=== PATIENT | male | born 1965 | race Caucasian/White ===

== ENCOUNTER → 2019-01-01 | Outpatient (CLI) | payer OTHER ==
--- NOTE | 2019-01-01 10:20 | CT ---
EXAMINATION TYPE: CT heart w calcium score DATE OF EXAM: 01/01/2019 COMPARISON: None HISTORY: Screening for cardiovascular disorder. 213.9 CT DLP: 155.90 mGycm Automated exposure control for dose reduction was used. CT CALCIUM SCORING Coronary calcium is a marker for plaque (fatty deposits) in a blood vessel or atherosclerosis (harden ing of the arteries). The presence and amount of calcium detected in a coronary artery by the CT sca n, indicates the presence and amount of atherosclerotic plaque. These calcium deposits appear years before the development of heart disease symptoms such as chest pain and shortness of breath. A calcium score is computed for each of the coronary arteries based upon the volume and density of th e calcium deposits. This can be referred to as your calcified plaque burden. It does not correspond directly to the percentage of narrowing in the artery but does correlate with the severity of the un derlying coronary atherosclerosis. PROCEDURE TECHNIQUE - Prospective Gating was used. Slice thickness: 3mm. Density threshold (HU): 130, Pixel threshold: 3, Algorithm: discrete. RESULTS Region: LM Calcium Score ([place]): 40 Volume (mm3): 31 Mass (g): 14.34 Region: RCA Calcium Score ([place]): 41 Volume (mm3): 31 Mass (g): 10.2 Region: LAD Calcium Score ([place]): 80 Volume (mm3): 61 Mass (g): 24.11 Region: CX Calcium Score ([place]): 137 Volume (mm3): 103 Mass (g): 43.43 Total: Calcium Score ([place]ston): 298 TOTAL CALCIUM SCORE: 298 IMPRESSION: Calcium Score: 298 Implication: Definite, at least moderate atherosclerotic plaque. There is mild coronary artery disea se risk highly likely, significant narrowings are possible. Risk of Coronary Artery Disease: Significant narrowings of coronary vessels are possible. This patien t is above the 95th percentile for risks of coronary artery disease in age and sex match comparison. Recommendation: 1. Additional workup for coronary artery disease.
== END | disposition home or self-care (01) ==
LOC: RADCTMAIN 08:46
PROVIDERS: ATTEND Family Medicine
DX: I25.10 Atherosclerotic heart disease of native coronary artery without angina pectoris (principal); I10 Essential (primary) hypertension; E11.65 Type 2 diabetes mellitus with hyperglycemia; E78.2 Mixed hyperlipidemia
CPT/HCPCS: 75571

== ENCOUNTER 2019-02-13 09:25 | Day surgery (SDC) | payer OTHER ==
[2019-02-07 15:49] VITALS: BMI 42.7
[~2019-02-13 09:25] MED LIST: ALPRAZolam 0.25 MG TAB PO PRN; ALPRAZolam 0.5 MG TAB PO PRN; ASPIRIN 325 MG TAB PO STA; ATORVASTATIN 80 MG TAB PO STA; NITROGLYCERIN SL TABS 0.4 MG TAB SUBLINGUAL PRN; SODIUM CHLORIDE 0.9% 1,000 ML in EMPTY BAG 1 BAG IV ONE
[2019-02-13 10:00] LABS: Glucose,Whole Blood 149 mg/dL (75-99)
[2019-02-13] MEDS ORDERED: LIDOCAINE 1% INJ 10MG/ML (20 ML MDV) ONE (10:26)
[2019-02-13] MEDS ORDERED: VERAPAMIL 2.5 MG/ML 2 ML AMP ONE (10:26)
[2019-02-13] MEDS ORDERED: fentaNYL (PF) 50 MCG/ML 2 ML AMP ONE (10:26)
[2019-02-13] MEDS ORDERED: fentaNYL (PF) 50 MCG/ML 2 ML AMP IV ONE (10:30)
[2019-02-13] MEDS: MIDAZOLAM 2 MG/2 ML VIAL IV ONE ×2 (10:31→11:39)
[2019-02-13] MEDS ORDERED: LIDOCAINE 1% INJ 10MG/ML (20 ML MDV) SQ ONE (10:35)
[2019-02-13] MEDS: VERAPAMIL SYRINGE (5 MG/10 ML) INTRAARTER ONE ×2 (10:41→10:46)
[2019-02-13] MEDS ORDERED: HEPARIN SODIUM 1,000 UN/ML (10ML VL) ONE (10:43)
[2019-02-13] MEDS ORDERED: HEPARIN SODIUM 1,000 UN/ML (10ML VL) IV ONE (10:45)
--- NOTE | 2019-02-13 11:22 | P.CARDCATH ---
Date of Procedure: 02/13/19 Preoperative Diagnosis: Chest pain and a high calcium score on the computed tomography scan. Strong family history of ischemic heart disease Postoperative Diagnosis: Heavily calcified coronary system involving both the left and right coronary arteries. About 90% stenosis of the mid RCA. Procedure(s) Performed: Left heart catheterization without left ventriculography Description of Procedure: HISTORY: This is a 53-year-old gentleman who was recently seen for evaluation of chest pains. Patient also had a height calcium score on the computed tomography scan of the heart. Patient is advised to have a stress test or cardiac catheterization for definitive diagnosis. Patient preferred to have cardiac catheterization for definitive diagnosis CONSENT:I have discussed the risks, benefits and alternative therapies for the above-mentioned procedure and for both sedation/analgesia as well as necessary blood product administration, if indicated, as they pertain to this patient. The patient has indicated understanding and acceptance of the risks and procedures discussed. PROCEDURE: Patient was brought to the lab in a fasting state. Patient was given some IV sedation. The right wrist is infiltrated with lidocaine and right femoral radial artery was entered using Seldinger technique. A 6-[place] catheter was advanced over the guidewire. The catheter went in partially but could not could not be fully advanced because of difficulty. The catheter was left partially in and selective coronary arteriography was performed without any difficulty.. Patient tolerated the procedure well. TR band was applied for hemostasis. Patient was found to have a critical lesion in the RCA and patient is going to have atherectomy and stent placement of the RCA by Dr. Gray. No immediate complications were noted . Patient was given 4000 of heparin Conscious Sedation: Versed 1.5mg Fentanyl 50 g Duration 27 minutes HEMODYNAMICS: The aortic pressure is about 150/75. Left ventricular end- diastolic pressure is about 10. There was no gradient across the aortic valve. SELECTIVE CORONARY ARTERIOGRAPHY: LEFT MAIN: Long with a mild disease distally with about 30-40% luminal narrowing. The left main is heavily calcified THE LEFT ANTERIOR DESCENDING CORONARY ARTERY: This is a moderate caliber vessel with heavy calcification in the proximal and mid segments. There appears to be a 30-40% stenosis in the proximal segments without any critical lesions THE LEFT CIRCUMFLEX AND IS CORONARY ARTERY: This is a nondominant vessel and heavily calcified. No significant obstructive disease noted THE RIGHT CORONARY ARTERY: This is a dominant vessel and heavily calcified with a critical lesion in the midportion LEFT VENTRICULOGRAPHY: Not performed FINAL IMPRESSION: Critical lesion involving the heavily calcified right coronary artery. Heavily calcified left coronary system with a 30% distal left main disease and also about 30% lesion of the LAD. No critical lesion noted in the left coronary system PLAN: Atherectomy and stent placement of the RCA to be done by Dr. Hylton. PROGNOSIS: Fair
[2019-02-13] MEDS ORDERED: BIVALIRUDIN BOLUS 250 MG/50 ML IV ONE (11:36)
[2019-02-13] MEDS ORDERED: BIVALIRUDIN 250 MG in SODIUM CHLORIDE 0.9% 50 ML IV ONE (11:37)
[2019-02-13] MEDS ORDERED: MIDAZOLAM 2 MG/2 ML VIAL IV ONE (11:47)
[2019-02-13] MEDS ORDERED: TICAGRELOR 90 MG TAB ONE (12:01)
[2019-02-13] MEDS ORDERED: NITROGLYCERIN 1000MCG/10ML SYRINGE INTRACORON ONE (12:03)
[2019-02-13] MEDS ORDERED: TICAGRELOR 90 MG TAB PO ONE (12:03)
[2019-02-13] MEDS ORDERED: IOPAMIDOL-370 100ML BTL INJ ONE ×2 (12:04→12:18)
[2019-02-13] MEDS ORDERED: ERYTHROMYCIN 2% TOPICAL SOLN 60 ML BTL TOPICAL PRN (12:22)
[2019-02-13] MEDS ORDERED: ALPRAZolam 0.25 MG TAB PO PRN (12:22)
[2019-02-13] MEDS ORDERED: HYDROCORTISONE 1% CREAM 30 GM TUBE TOPICAL PRN (12:22)
[2019-02-13] MEDS ORDERED: NITROGLYCERIN SL TABS 0.4 MG TAB SUBLINGUAL PRN (12:24)
[2019-02-13] MEDS ORDERED: MAG HYDROX/AL HYDROX/SIMETH 30 ML CUP PO PRN (12:24)
[2019-02-13] MEDS ORDERED: RX INFO: IV CONTRAST WAS GIVEN 1 EACH MISC MISCELLANE PRN (12:24)
[2019-02-13] MEDS ORDERED: ZOLPIDEM 5 MG TAB PO PRN (12:24)
[2019-02-13] MEDS ORDERED: ATROPINE SULFATE 0.1 MG/ML 10ML SYRINGE IV PRN (12:24)
[2019-02-13] MEDS ORDERED: SODIUM CHLORIDE 0.9% 1,000 ML IV SCH (12:30)
[2019-02-13 15:02] VITALS: RESP 18
[2019-02-13] MEDS: ACETAMINOPHEN TAB 325 MG TAB PO PRN ×2 (15:34→20:47)
--- NOTE | 2019-02-13 18:20 | PTCA ---
PERCUTANEOUSTRANS CORORONARY ANGIOGRAPHY DATE OF SERVICE: February 13, 2019 PERFORMING PHYSICIAN: Bryson Hylton MD, railroad passenger agent. PROCEDURE PERFORMED: 1. Atherectomy of the right coronary artery using the orbital atherectomy device from lensgen. 2. Successful stenting of the mid right coronary artery using 4.0 x 28 mm Xience drug- eluting stent with an excellent angiographic results and reduction of stenosis from 90% to 10%. INDICATIONS: This is a 53-year-old gentleman with diabetes, hypertension, and dyslipidemia, who sees Dr. Haynes as an outpatient who recently was experiencing chest discomfort. He underwent heart catheterization by Dr. Haynes earlier today and that revealed critical disease involving the right coronary artery with extremely calcified plaque. Because of that PCI of the RCA, was advised. APPROACH: Right common femoral artery. COMPLICATION: None. LEVEL OF SEDATION: Moderate with sedation length of 52 minutes. PROCEDURE DESCRIPTION: After obtaining an informed consent, the patient was brought to the cardiac general laborer. The right common femoral artery was cannulated using micropuncture technique, the micropuncture wire passed easily. Then I placed a 6-[place] sheath in the right common femoral artery. At that point, anticoagulation was initiated using Angiomax. Subsequently I did engage the RCA using JR4 guide. I did wire the right coronary artery using a whisper wire. After that, I did exchange my Whisper wire into ViperWire using Super Cross catheter. After that, I did atherectomy of the mid right coronary artery using the orbital atherectomy device with CSI wire. I did atherectomy under low speed for 30 seconds. After that, I did balloon angioplasty initially using 3.0 mm balloon, then 375 mm balloon. After that, I was able to advance 4.0 x 28 mm Xience drug-eluting stent where stent was positioned under fluoroscopy guidance and deployed under its nominal pressure. The following angiogram showed excellent angiographic results and the procedure was completed without any complication. POSTPROCEDURE MANAGEMENT: 1. Dual anti-platelet therapy. 2. Risk factors modifications. 3. Aggressive cholesterol control. 4. Follow up with the patient. MMODL / IJN: [id number] /
[2019-02-13] MEDS: CARVEDILOL 12.5 MG TAB PO SCH (18:38)
[2019-02-13] MEDS: FUROSEMIDE 40 MG TAB PO SCH (18:38)
[2019-02-13] MEDS: GLIMEPIRIDE 4 MG TAB PO SCH (18:39)
--- NOTE | 2019-02-13 18:46 | LTR ---
February 13, 2019 To: Dr. Mays Re: Dwayne Coreas (63) Dear Dr. Mays, MrLiz Coreas underwent a heart catheterization earlier today by Dr. Haynes and was found to have severe disease involving the mid right coronary artery. I performed successful stenting of the right coronary artery with good angiographic results and without any complication. Thank you for allowing us to participate in his care. Please do not hesitate to call if you have any question or concern. Sincerely, Bryson Hylton M.D. YESENIA / MERY: [id number] /
[2019-02-13] MEDS: LISINOPRIL 20 MG TAB PO SCH (20:48)
[2019-02-13] MEDS: TICAGRELOR 90 MG TAB PO SCH (20:49)
[2019-02-13] MEDS: POTASSIUM CHLORIDE ER 10 MEQ TAB.ER.PRT PO SCH (20:49)
[2019-02-13] MEDS ORDERED: LATANOPROST 0.005% OPHTH DROPS 2.5 ML BTL BOTH EYES SCH (21:00)
[2019-02-13] MEDS ORDERED: MONTELUKAST 10 MG TAB PO SCH (21:00)
[2019-02-14 05:16] VITALS: PULSE 72
[2019-02-14] MEDS: GLIMEPIRIDE 4 MG TAB PO SCH (06:53)
[2019-02-14] MEDS: CARVEDILOL 12.5 MG TAB PO SCH (06:53)
[2019-02-14] MEDS: FUROSEMIDE 40 MG TAB PO SCH (07:51)
[2019-02-14 07:53] LABS: Basophils % (A) 0 %; Eosinophils # (A) 0.3 k/uL (0-0.7); Eosinophils % (A) 4 %; HCT 41.1 % (39.0-53.0); HGB 13.1 gm/dL (13.0-17.5); Lymphocytes # (A) 1.9 k/uL (1.0-4.8); Lymphocytes % (A) 20 %; MCH 27.1 pg (25.0-35.0); MCV 84.8 fL (80.0-100.0); Mean Platelet Volume 7.7; Monocytes # (A) 0.6 k/uL (0-1.0); Monocytes % (A) 6 %; Neutrophils # (A) 6.3 k/uL (1.3-7.7); Neutrophils % (A) 68 %; Platelet Count 290 k/uL (150-450); RBC 4.85 m/uL (4.30-5.90); RDW 14.5 % (11.5-15.5); WBC 9.3 k/uL (3.8-10.6)
[2019-02-14] MEDS: LISINOPRIL 20 MG TAB PO SCH (07:55)
[2019-02-14] MEDS: POTASSIUM CHLORIDE ER 10 MEQ TAB.ER.PRT PO SCH (07:55)
[2019-02-14] MEDS: TICAGRELOR 90 MG TAB PO SCH (07:55)
[2019-02-14 08:00] VITALS: BP 143/75; TEMP 98.8
[2019-02-14 08:00] LABS: Anion Gap 9 mmol/L; Blood Urea Nitrogen 10 mg/dL (9-20); Calcium 9.5 mg/dL (8.4-10.2); Carbon Dioxide 26 mmol/L (22-30); Chloride 107 mmol/L (98-107); Glucose 88 mg/dL (74-99); Potassium 3.9 mmol/L (3.5-5.1); Sodium 142 mmol/L (137-145)
[2019-02-14] MEDS ORDERED: CHOLECALCIFEROL 1,000 UNIT TAB PO SCH (09:00)
[2019-02-14] MEDS ORDERED: PIOGLITAZONE 45 MG TAB PO SCH (09:00)
[2019-02-14] MEDS ORDERED: PARoxetine 20 MG TAB PO SCH (09:00)
[2019-02-14] MEDS ORDERED: ASPIRIN 81 MG PO SCH (09:00)
[2019-02-14] MEDS ORDERED: LORATADINE 10 MG TAB PO SCH (09:00)
--- NOTE | 2019-02-14 10:19 | P.DS ---
Providers Date of admission: 02/13/2019 Attending physician: Abby Haynes Consults: 02/13/19 12:24 Consult Physician Routine Consulting Provider: [facility] Consult Reason/Comments: Post Interventional patient Do you want consulting provider notified?: Already Contacted Primary care physician: Chalino Mays - Discharge Diagnosis(es) (1) CAD (coronary artery disease) Current Visit: Yes Status: Acute (2) High coronary artery calcium score Current Visit: Yes Status: Acute (3) Status post coronary artery stent placement Current Visit: Yes Status: Acute Hospital Course: This is a 53-year-old gentleman who was brought in for cardiac catheterization because of chest pains and a high calcium score on the computed tomography scan. Patient was found to have significant calcification of the coronary system with a critical lesion involving the mid RCA. Patient had atherectomy and stent placement of the RCA by Dr. Hylton. Patient reminded stable overnight. Denied any chest pain, shortness of breath or dizziness. His back is slightly sore. His puncture site in the right wrist seems to be healing well without any hematoma or significant ecchymosis. Radial pulses preserved. The puncture site in the right groin seems to be soft without any hematoma. Mildly ecchymosis noted. Lungs are clear. Heart is regular. No JVD. No peripheral edema. His lab work showed stable renal function and CBC. Patient is being discharged home in stable condition. Plan - Discharge Summary Discharge Rx Participant: Yes New Discharge Prescriptions: New Ticagrelor [Brilinta] 90 mg PO BID #90 tab Atorvastatin [Lipitor] 80 mg PO HS #90 tab Nitroglycerin Sl Tabs [Nitrostat] 0.4 mg SUBLINGUAL Q5M PRN #25 tab PRN Reason: Chest Pain Continue Pioglitazone [Actos] 45 mg PO DAILY Glimepiride [Amaryl] 4 mg PO BID Furosemide [Lasix] 40 mg PO BID Loratadine [Claritin] 10 mg PO DAILY Cholecalciferol [Vitamin D3] 2,000 unit PO DAILY ALPRAZolam [Xanax] 0.25 mg PO Q8HR PRN PRN Reason: Anxiety metFORMIN HCL 1,000 mg PO BID Lisinopril 40 mg PO BID Erythromycin Topical [Erythromycin 2% Topical Soln] 1 applic TOPICAL DAILY PRN PRN Reason: Skin Irritation Multivitamins, Thera [Multivitamin (formulary)] 1 tab PO DAILY Aspirin [Adult Low Dose Aspirin EC] 81 mg PO DAILY Carvedilol [Coreg*] 12.5 mg PO BID Potassium Chloride [K-Tab ER] 10 meq PO BID Hydrocortisone Cream [Hydrocortisone 1% Cream] 1 applic TOPICAL DAILY PRN PRN Reason: Skin Irritation Latanoprost/Pf [Latanoprost 0.005% Eye Drop] 1 drop BOTH EYES HS PARoxetine HCL [Paxil] 40 mg PO DAILY Montelukast [Singulair] 10 mg PO HS Discontinued Simvastatin [Zocor] 20 mg PO HS Discharge Medication List ALPRAZolam [Xanax] 0.25 mg PO Q8HR PRN 08/08/16 [History] Aspirin [Adult Low Dose Aspirin EC] 81 mg PO DAILY 08/08/16 [History] Carvedilol [Coreg*] 12.5 mg PO BID 08/08/16 [History] Cholecalciferol [Vitamin D3] 2,000 unit PO DAILY 08/08/16 [History] Erythromycin Topical [Erythromycin 2% Topical Soln] 1 applic TOPICAL DAILY PRN 08/08/16 [History] Furosemide [Lasix] 40 mg PO BID 08/08/16 [History] Glimepiride [Amaryl] 4 mg PO BID 08/08/16 [History] Hydrocortisone Cream [Hydrocortisone 1% Cream] 1 applic TOPICAL DAILY PRN 08/08/16 [History] Lisinopril 40 mg PO BID 08/08/16 [History] Loratadine [Claritin] 10 mg PO DAILY 08/08/16 [History] Multivitamins, Thera [Multivitamin (formulary)] 1 tab PO DAILY 08/08/16 [History] Pioglitazone [Actos] 45 mg PO DAILY 08/08/16 [History] Potassium Chloride [K-Tab ER] 10 meq PO BID 08/08/16 [History] metFORMIN HCL 1,000 mg PO BID 08/08/16 [History] Latanoprost/Pf [Latanoprost 0.005% Eye Drop] 1 drop BOTH EYES HS 02/07/19 [History] Montelukast [Singulair] 10 mg PO HS 02/07/19 [History] PARoxetine HCL [Paxil] 40 mg PO DAILY 02/07/19 [History] Atorvastatin [Lipitor] 80 mg PO HS #90 tab 02/14/19 [Rx] Nitroglycerin Sl Tabs [Nitrostat] 0.4 mg SUBLINGUAL Q5M PRN #25 tab 02/14/19 [Rx] Ticagrelor [Brilinta] 90 mg PO BID #90 tab 02/14/19 [Rx] Follow up Appointment(s)/Referral(s): Abby Haynes MD [STAFF PHYSICIAN] - 02/21/19 2:15 pm (Sunday) Patient Instructions/Handouts: *[facility] - After Heart Catheterization - Bottling Line Operator Instructions, Left Heart Catheterization (DC) Discharge Disposition: HOME SELF-CARE
[2019-02-14] MEDS ORDERED: MULTIVITAMINS, THERA 1 EACH TAB PO SCH (12:00)
[2019-02-14] MEDS ORDERED: ATORVASTATIN 80 MG TAB PO SCH (21:00)
== END 2019-02-14 11:41 | disposition home or self-care (01) ==
LOC: CATHCVL 09:25 → 3SCARD 12:17 → CATHCVL 02-14 11:41
PROVIDERS: ATTEND Internal Medicine Cardiovascular Disease
DX: I25.119 Atherosclerotic heart disease of native coronary artery with unspecified angina pectoris (principal); I10 Essential (primary) hypertension; E78.00 Pure hypercholesterolemia, unspecified; E11.9 Type 2 diabetes mellitus without complications; E78.5 Hyperlipidemia, unspecified; F41.9 Anxiety disorder, unspecified; F32.9 Major depressive disorder, single episode, unspecified; Z82.49 Family history of ischemic heart disease and other diseases of the circulatory system; Z79.84 Long term (current) use of oral hypoglycemic drugs; Z79.899 Other long term (current) drug therapy; Z79.82 Long term (current) use of aspirin
CPT/HCPCS: 93458; 80048; 85025; C9602; C1769 ×5; C1887; C1725 ×2; C1894 ×3; C1714; C1874; J2250; J2001; J3010; J1644; J0583; Q9967